=== PATIENT | male | born 1950 | race Caucasian/White ===

== ENCOUNTER → 2019-10-02 | Outpatient (CLI) | payer MEDICARE, OTHER | LOC: ZCOL.LAB 16:20 | DX: J02.9 Acute pharyngitis, unspecified (principal); M79.10 Myalgia, unspecified site; Z20.828 Contact with and (suspected) exposure to other viral communicable diseases ==

== ENCOUNTER 2021-09-26 13:16 | Observation (INO) | payer MEDICARE, OTHER ==
[~2021-09-26] VITALS: Ht 177.8 cm; Wt 102.0 kg
[2021-09-26 13:59] LABS: BASO % 0.6 % (0.0-2.0); EOS # 0.1 K/mm3 (0.0-0.7); EOS % 1.5 % (0.0-4.0); GRAN # 4.7 K/mm3 (1.4-6.5); GRAN % 68.5 % (42.2-75.2); HEMATOCRIT 48.2 % (42.0-52.0); HEMOGLOBIN 16.7 g/dl (13.5-18.0); LYMPH # 1.2 K/mm3 (1.2-3.4); LYMPH % 17.7 % (20.0-51.0); MEAN CELL VOLUME 85 fl (80.0-100.0); MEAN CORPUSCULAR HEMOGLOBIN 29 pg (27-31); MEAN CORPUSCULAR HGB CONC 35 g/dl (33.0-37.0); MEAN PLATELET VOLUME 9.9 fl (7.4-10.4); MONO # 0.8 K/mm3 (0.1-0.6); MONO % 11.1 % (1.7-9.3); PLATELET COUNT 200 K/mm3 (130-400); RED BLOOD COUNT 5.68 M/mm3 (4.20-5.60); REDCELL DISTRIBUTION WIDTH-CV 13.2 % (11.5-14.5)
[2021-09-26 14:13] LABS: ALBUMIN 4.2 gm/dL (3.4-4.8); CALCIUM 9.8 mg/dL (8.4-10.2); CREATININE, serum 1.17 mg/dL (0.72-1.25); POTASSIUM 4.4 mmol/L (3.5-4.5)
[2021-09-26 14:19] LABS: TROPONIN-I 0.012 ng/mL (0.00-0.033)
[2021-09-26 20:32] VITALS: BP 137/56; PULSE 50; TEMP 100.6
[2021-09-27] VITALS (9 sets, daily range): BP systolic 94–136; BP diastolic 52–66; PULSE 40–88; TEMP 97.9–99.4
--- NOTE | 2021-09-27 00:28 | NUR ---
Report received, pt resting in bed. Assessment completed without difficulty. Pt is A&Ox4. Pt has had no complaints of pain thus far this shift. Contact precautions currentyl in place. Medications given per eMAR. All other needs met at this time. Call light within reach.
--- NOTE | 2021-09-27 05:33 | NUR ---
Pt had an uneventful shift. It was reported to this nurse at approximately 2029 that pt had a temperature of 100.6, hospitalist was notified and this nurse received new orders. Medication administered per eMAR. All other needs met at this time, call light within reach.
[2021-09-27 06:06] LABS: BASO % 0.4 % (0.0-2.0); EOS # 0.1 K/mm3 (0.0-0.7); EOS % 2.2 % (0.0-4.0); GRAN # 3.5 K/mm3 (1.4-6.5); GRAN % 64.2 % (42.2-75.2); HEMATOCRIT 47.9 % (42.0-52.0); HEMOGLOBIN 16.2 g/dl (13.5-18.0); LYMPH # 1.1 K/mm3 (1.2-3.4); MEAN CELL VOLUME 86 fl (80.0-100.0); MEAN CORPUSCULAR HEMOGLOBIN 29 pg (27-31); MEAN CORPUSCULAR HGB CONC 34 g/dl (33.0-37.0); MEAN PLATELET VOLUME 9.7 fl (7.4-10.4); MONO # 0.7 K/mm3 (0.1-0.6); MONO % 12.5 % (1.7-9.3); PLATELET COUNT 160 K/mm3 (130-400); RED BLOOD COUNT 5.56 M/mm3 (4.20-5.60); REDCELL DISTRIBUTION WIDTH-CV 13.2 % (11.5-14.5)
[2021-09-27 06:24] LABS: CALCIUM 9.3 mg/dL (8.4-10.2); CREATININE, serum 1.23 mg/dL (0.72-1.25); POTASSIUM 4.5 mmol/L (3.5-4.5)
[2021-09-27 08:56] LABS: CHOLESTEROL RISK RATIO 4.7
[2021-09-27] MEDS ORDERED: VALTREX1 GM PO (11:50)
[2021-09-27] MEDS ORDERED: LIPITOR 40MG TA40 MG PO (11:50)
[2021-09-27] MEDS ORDERED: ASPIRIN 81M81 MG/TA2 PO (11:50)
[2021-09-27] MEDS ORDERED: NITROSTAT0.4 MG/TAB SL (11:51)
[2021-09-27] MEDS ORDERED: DOXYCYCLINE 10100 MG PO (11:52)
--- NOTE | 2021-09-27 12:51 | NUR ---
Discharge instructions given both verbal and handwritten. Discussed f/u appt, s/s of infection, home medications and when to return to the ED. Verbalizes understanding/denies questions/concerns. INT to right and left AC DCd at this time-cath intact. Tele monitor removed. 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 Verbalizes understanding. Call light in reach. Will monitor.
--- NOTE | 2021-09-27 13:26 | NUR ---
Escorted off floor in wheelchair by BRENDA Valenzuela in stable condition accompanied by friend.
== END 2021-09-27 13:28 | disposition home or self-care (01) ==
LOC: COL.ER 13:16 → MEDICAL 15:52
PROVIDERS: Emergency Medicine; Physician Assistant; ADMIT Student in an Organized Health Care Education/Training Program
DX: R00.1 Bradycardia, unspecified (principal); W57.XXXA Bitten or stung by nonvenomous insect and other nonvenomous arthropods, initial encounter; B02.9 Zoster without complications; G47.33 Obstructive sleep apnea (adult) (pediatric); E11.9 Type 2 diabetes mellitus without complications; X58.XXXA Exposure to other specified factors, initial encounter; Y92.9 Unspecified place or not applicable
CPT/HCPCS: 99222-AI; A9500; G0378; J2785

== ENCOUNTER 2021-10-09 10:52 | Emergency (ER) | payer MEDICARE, OTHER ==
[~2021-10-09] VITALS: Ht 177.8 cm; Wt 102.3 kg
[~2021-10-09 10:52] MED LIST: ASPIRIN 81M81 MG/TA2 PO; DOXYCYCLINE 10100 MG PO; LIPITOR 40MG TA40 MG PO; NITROSTAT0.4 MG/TAB SL; VALTREX1 GM PO
[2021-10-09 11:05] VITALS: TEMP 98.3
[2021-10-09 11:46] LABS: BASO % 0.6 % (0.0-2.0); EOS # 0.2 K/mm3 (0.0-0.7); EOS % 3.1 % (0.0-4.0); GRAN # 4.6 K/mm3 (1.4-6.5); GRAN % 64.4 % (42.2-75.2); HEMATOCRIT 47.1 % (42.0-52.0); HEMOGLOBIN 16.3 g/dl (13.5-18.0); LYMPH # 1.2 K/mm3 (1.2-3.4); LYMPH % 17.3 % (20.0-51.0); MEAN CELL VOLUME 87 fl (80.0-100.0); MEAN CORPUSCULAR HEMOGLOBIN 30 pg (27-31); MEAN CORPUSCULAR HGB CONC 35 g/dl (33.0-37.0); MEAN PLATELET VOLUME 9.9 fl (7.4-10.4); MONO % 14.3 % (1.7-9.3); PLATELET COUNT 186 K/mm3 (130-400); RED BLOOD COUNT 5.43 M/mm3 (4.20-5.60); REDCELL DISTRIBUTION WIDTH-CV 13.8 % (11.5-14.5)
[2021-10-09 12:01] LABS: ALANINE AMINOTRANSFERASE 15 U/L (0-55); ALBUMIN 3.9 gm/dL (3.4-4.8); ALKALINE PHOSPHATASE 73 U/L (40-150); ANION GAP 12 mmol/L (7-16); AST,SGOT 20 U/L (5-34); BILIRUBIN,TOTAL 0.6 mg/dL (0.2-1.2); BLOOD UREA NITROGEN 15 mg/dL (8-26); CALCIUM 9.1 mg/dL (8.4-10.2); CARBON DIOXIDE 23 mmol/L (23-31); CHLORIDE 105 mmol/L (98-107); CREATININE, serum 1.07 mg/dL (0.72-1.25); GLUCOSE 135 mg/dL (70-99); POTASSIUM 4.3 mmol/L (3.5-4.5); SODIUM 140 mmol/L (136-145)
[2021-10-09 12:09] LABS: TROPONIN-I < 0.010 ng/mL (0.00-0.033)
[2021-10-09] MEDS ORDERED: ZITHROMAX Z PA250 MG PO (12:19)
[2021-10-09] MEDS ORDERED: AUGMENTIN XR 101 TER PO (12:19)
[2021-10-09 12:36] VITALS: BP 147/80; PULSE 50
== END 2021-10-09 12:38 | disposition home or self-care (01) ==
LOC: COL.ER 10:52
PROVIDERS: Emergency Medicine
DX: J18.9 Pneumonia, unspecified organism (principal); Z20.822 Contact with and (suspected) exposure to COVID-19; Z88.2 Allergy status to sulfonamides

== ENCOUNTER 2021-10-24 07:03 | Day surgery (SDC) | payer MEDICARE, OTHER ==
[~2021-10-24] VITALS: Wt 108.4 kg
[2021-10-24] VITALS (23 sets, daily range): BP systolic 79–143; BP diastolic 57–86; PULSE 38–63; TEMP 97.6–98.5
[~2021-10-24 07:03] MED LIST changes: +AUGMENTIN XR 101 TER PO; +ZITHROMAX Z PA250 MG PO
[2021-10-24 07:37] LABS: HEMATOCRIT 47.7 % (42.0-52.0); HEMOGLOBIN 16.8 g/dl (13.5-18.0); MEAN CELL VOLUME 86 fl (80.0-100.0); MEAN CORPUSCULAR HEMOGLOBIN 30 pg (27-31); MEAN CORPUSCULAR HGB CONC 35 g/dl (33.0-37.0); MEAN PLATELET VOLUME 10.1 fl (7.4-10.4); PLATELET COUNT 209 K/mm3 (130-400); RED BLOOD COUNT 5.56 M/mm3 (4.20-5.60); REDCELL DISTRIBUTION WIDTH-CV 13.2 % (11.5-14.5)
[2021-10-24 07:47] LABS: PROTHROMBIN TIME 11.5 SECONDS (9.7-12.8)
[2021-10-24 07:48] LABS: CALCIUM 9.5 mg/dL (8.4-10.2); CREATININE, serum 1.16 mg/dL (0.72-1.25); POTASSIUM 4.5 mmol/L (3.5-4.5)
[2021-10-24 07:50] LABS: PARTIAL THROMBOPLASTIN TIME 30.7 SECONDS (26.0-37.0)
[2021-10-24] MEDS ORDERED: LIPITOR 40MG TA40 MG PO (07:50)
--- NOTE | 2021-10-24 08:42 | NUR ---
Dr. Hyde at bedside to discuss poc.
--- NOTE | 2021-10-24 09:02 | NUR ---
See merge for all medication, assessment, intervention, and vital sign times.
--- NOTE | 2021-10-24 09:46 | NUR ---
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 Pt aware of plan to keep NPO until he and decide whether to proceed with pacemaker, loop recorder after consulting again with Dr. Hyde. Telemetry employed. call light in reach.
--- NOTE | 2021-10-24 11:04 | NUR ---
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 Dr. Hyde in to see pt at this time.
--- NOTE | 2021-10-24 12:30 | NUR ---
TR band has been deflated with no problem. site dressed with bandaid, folded 2x2 and coban. cms remains intact distal. Pt remains NPO for pacemaker implantation, exact timeframe uncertain. pt is aware. denies needs.
--- NOTE | 2021-10-24 16:15 | NUR ---
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 consent for pacemaker has been obtained. Pt and his signed consent.
[2021-10-25 00:04] VITALS: BP 142/77; PULSE 60; TEMP 97.8
[2021-10-25 00:07] VITALS: BP 142/77; PULSE 63; TEMP 97.8
--- NOTE | 2021-10-25 02:36 | NUR ---
Pt alert and oriented. Follows commands. Calm and cooperative. Pt denies pain at this time. Denies chest pain/SOB. Pt did report tenderness at pacemaker site earlier. Prn tyelonol administered with reported relief. Pacemaker placed on the left side of the chest. Site is currently soft, with no edema/redness/significant bruising/bleeding. Gauze/tape dressing is clean/dry/intact. Left arm remains in sling. Pt educated to utilize the opposite arm and to not lift the left arm up over the head and to keep it within the sling. Ice applied to the pacemaker site. Post-op VS continued and completed. Pt educated to call before getting OOB to prevent injury to the pacemaker site. Pt tolerating PO. AHA diet enforced. Pt up to void multiple times with assistance. nurse monitoring on. Shift assessment performed. Medications administered and education provided. VS stable. Afebrile. Satting WNL on room air. BP runs elevated but stable at this time. No significant skin issues noted. Bed is in low and locked position, with call queen within reach. Pt does not report any questions at this time. No concerns at this time.
[2021-10-25 04:24] VITALS: BP 139/75; PULSE 60; TEMP 98.4
--- NOTE | 2021-10-25 05:10 | NUR ---
No adverse events overnight. Device download performed this morning. IV antibx administered per orders overnight. Pacemaker site clean/dry/intact. No edema/drainage/bleeding at site. Site is soft. Pt tolerating PO. VS stable. Afebrile. Satting WNL on room air. Pt's arm remains in sling. Re-educated pt on left arm restrictions. Pt up to void overnight. clay hoister on. Fall precautions in place. Pt does not report any questions at this time. Bed low and locked, call queen within reach. No new concerns at this time.
[2021-10-25 06:31] LABS: BASO % 0.6 % (0.0-2.0); EOS # 0.2 K/mm3 (0.0-0.7); EOS % 2.2 % (0.0-4.0); GRAN # 4.5 K/mm3 (1.4-6.5); HEMATOCRIT 45.5 % (42.0-52.0); HEMOGLOBIN 15.9 g/dl (13.5-18.0); LYMPH # 1.2 K/mm3 (1.2-3.4); MEAN CELL VOLUME 86 fl (80.0-100.0); MEAN CORPUSCULAR HEMOGLOBIN 30 pg (27-31); MEAN CORPUSCULAR HGB CONC 35 g/dl (33.0-37.0); MONO # 0.8 K/mm3 (0.1-0.6); MONO % 11.9 % (1.7-9.3); PLATELET COUNT 171 K/mm3 (130-400); RED BLOOD COUNT 5.32 M/mm3 (4.20-5.60); REDCELL DISTRIBUTION WIDTH-CV 13.2 % (11.5-14.5)
[2021-10-25 06:52] LABS: CALCIUM 9.2 mg/dL (8.4-10.2); CREATININE, serum 1.06 mg/dL (0.72-1.25)
[2021-10-25 07:58] VITALS: BP 127/73; PULSE 61; TEMP 98.2
[2021-10-25 11:24] VITALS: BP 144/76; PULSE 59; TEMP 98
[2021-10-25] MEDS ORDERED: LIPITOR 80MG80 MG PO (13:44)
[2021-10-25] MEDS ORDERED: TYLENOL 325MG325 MG PO (13:45)
[2021-10-25] MEDS ORDERED: CEPHALEXIN500 M1 PO (13:46)
[2021-10-25] MEDS ORDERED: TOPROL XL 25MG25 MG PO ×3 (13:46→13:48)
--- NOTE | 2021-10-25 14:25 | NUR ---
1430 - DISCHARGE PACKET AND PATIENT EDUCATION PROVIDED. ALL QUESTIONS ANSWERED. IV REMOVED PER PROTOCOL. PATIENT SAFELY TRANSPORTED TO ED EXIT BY STAFF TO FAMILY.
== END 2021-10-25 14:50 | disposition home or self-care (01) ==
LOC: COL.CAR 07:03 → MEDICAL 17:00 → COL.CAR 10-25 14:50
PROVIDERS: Internal Medicine Cardiovascular Disease
DX: I25.10 Atherosclerotic heart disease of native coronary artery without angina pectoris (principal); I49.5 Sick sinus syndrome; R94.39 Abnormal result of other cardiovascular function study; G47.33 Obstructive sleep apnea (adult) (pediatric); Z79.899 Other long term (current) drug therapy
CPT/HCPCS: OP; C1769; C1785; C1894; C1898; J0690; J1644; J2250; J3010

== ENCOUNTER → 2021-12-13 | Outpatient (CLI) | payer MEDICARE, OTHER ==
[~2021-12-13] MED LIST changes: +CEPHALEXIN500 M1 PO; +LIPITOR 80MG80 MG PO; +TOPROL XL 25MG25 MG PO; +TYLENOL 325MG325 MG PO
== END ==
LOC: DIA.ED 13:42
DX: E11.69 Type 2 diabetes mellitus with other specified complication (principal); Z79.84 Long term (current) use of oral hypoglycemic drugs; E78.5 Hyperlipidemia, unspecified
CPT/HCPCS: G0108

== ENCOUNTER → 2021-12-19 | Outpatient (CLI) | payer MEDICARE, OTHER | LOC: DIA.ED 08:51 | DX: E11.59 Type 2 diabetes mellitus with other circulatory complications (principal); Z79.84 Long term (current) use of oral hypoglycemic drugs; E78.5 Hyperlipidemia, unspecified ==